=== PATIENT | male | born 1965 | race Caucasian/White ===

== ENCOUNTER 2019-12-25 17:03 | Emergency (ER) | payer SELFPAY ==
[~2019-12-25] VITALS: Ht 190.5 cm; Wt 127.0 kg
[2019-12-25 19:23] VITALS: BP 116/74
[2019-12-25] MEDS ORDERED: LIDOCAINE 1% HCL (LOCAL ANESTH.) INJ 20ML MDV IJ ONE (19:45)
[2019-12-25] MEDS ORDERED: TETANUS-DIPTH-ACEL PERTUSSIS 0.5ML SYRG IM ONE (19:45)
== END 2019-12-25 21:32 | disposition home or self-care (01) ==
LOC: ER 17:03
DX: S61.212A Laceration without foreign body of right middle finger without damage to nail, initial encounter (principal); I48.91 Unspecified atrial fibrillation; I10 Essential (primary) hypertension; F12.10 Cannabis abuse, uncomplicated; W22.8XXA Striking against or struck by other objects, initial encounter; Y93.89 Activity, other specified; Y92.89 Other specified places as the place of occurrence of the external cause; Y99.8 Other external cause status
CPT/HCPCS: 12001; 90471; 90715

== ENCOUNTER 2022-11-16 23:01 | Emergency (ER) | payer OTHER ==
[~2022-11-16] VITALS: Ht 190.5 cm; Wt 116.0 kg
[2022-11-16 23:57] LABS: Basophils # (auto) 0.1 10 ^3/uL (0-0.2); Basophils % (auto) 0.5 % (0.0-2.0); Eosinophils # (auto) 0.6 10 ^3/uL (0-0.8); Eosinophils % (auto) 4.1 % (0.0-7.0); Hematocrit 44.6 % (41.0-53.0); Hemoglobin 15.4 g/dL (13.5-17.5); Lymphocytes # (auto) 2.7 10 ^3/uL (0.4-5.4); Lymphocytes % (auto) 17.7 % (10.0-50.0); Mean Corpuscular Hemoglobin 32.3 pg (28.0-32.0); Mean Corpuscular Hgb Conc. 34.5 g/dL (32.0-36.0); Mean Corpuscular Volume 93.8 fL (80.0-100.0); Monocytes # (auto) 1.6 10 ^3/uL (0-1.3); Monocytes % (auto) 10.2 % (0.0-12.0); Neutrophils # (auto) 10.4 10 ^3/uL (1.6-8.6); Neutrophils % (auto) 67.5 % (37.0-80.0); Nucleated Red Blood Cells % 0.1 %; Red Blood Cells 4.75 10^6/uL (4.5-5.90); Red Cell Distribution Width 14.1 % (11.8-14.3); White Blood Cell 15.4 10^3/uL (4.4-10.8)
[2022-11-17 00:06] LABS: Albumin 4.3 g/dL (3.4-5.0); Calcium 9.2 mg/dL (8.5-10.1); Potassium 4.4 mmol/L (3.5-5.1)
[2022-11-17 00:10] LABS: BUN/Creatinine Ratio 21.5; Bilirubin, Total 0.4 mg/dL (0.2-1.0); Total Protein 7.2 g/dL (6.4-8.2)
[2022-11-17] MEDS ORDERED: SODIUM CHLORIDE 0.9% 1,000 ML IV ONE (00:45)
[2022-11-17] MEDS ORDERED: fentaNYL CITRATE 100 MCG/2 ML VL IV ONE ×2 (00:45→03:00)
[2022-11-17] MEDS ORDERED: ONDANSETRON HCL 4 MG/2 ML VIAL IV ONE (01:00)
[2022-11-17] MEDS ORDERED: TAMSULOSIN HYDROCHLORIDE 0.4 MG CAP PO ONE (02:45)
[2022-11-17] MEDS ORDERED: cefTRIAXone 1GM/50ML D5W 50 ML IV ONE (03:15)
[2022-11-17 04:24] LABS: Urine Bacteria NONE SEEN /hpf (None Seen); Urine Blood 2+ /uL (Negative); Urine Mucus FEW (None Seen); Urine Specific Gravity 1.028 (1.001-1.035); Urine WBC 1 /hpf (0 - 3)
[2022-11-17 07:05] VITALS: BP 155/66
== END 2022-11-17 07:26 | disposition short-term general hospital (02) ==
LOC: ER 23:01
DX: N20.0 Calculus of kidney (principal); I48.91 Unspecified atrial fibrillation; I10 Essential (primary) hypertension; F12.90 Cannabis use, unspecified, uncomplicated; Z98.890 Other specified postprocedural states; Z20.822 Contact with and (suspected) exposure to COVID-19
CPT/HCPCS: 36415; 74176; 76870; 80053; 81001; 84484; 85025; 87426; 93005; 96361; 96365; 96375; 96376; 99285; J0696; J2405; J3010; J7030

== ENCOUNTER 2024-03-05 08:23 | Inpatient (IN) | payer OTHER ==
[2024-03-05] VITALS (7 sets, daily range): BP systolic 142–162; BP diastolic 73–92; PULSE 61–72; RESP 18–20; TEMP 98–98.2; O2SAT 91–98
[~2024-03-05] VITALS: Ht 190.5 cm; Wt 124.5 kg
[2024-03-05 08:42] LABS: Basophils # (auto) 0.1 10 ^3/uL (0-0.2); Basophils % (auto) 0.6 % (0.0-2.0); Eosinophils # (auto) 0.3 10 ^3/uL (0-0.8); Eosinophils % (auto) 2.5 % (0.0-7.0); Hemoglobin 16.8 g/dL (13.5-17.5); Lymphocytes # (auto) 1.1 10 ^3/uL (0.4-5.4); Lymphocytes % (auto) 9.7 % (10.0-50.0); Mean Corpuscular Hemoglobin 32.2 pg (28.0-32.0); Mean Corpuscular Hgb Conc. 34.4 g/dL (32.0-36.0); Mean Corpuscular Volume 93.6 fL (80.0-100.0); Monocytes # (auto) 1.8 10 ^3/uL (0-1.3); Monocytes % (auto) 16.1 % (0.0-12.0); Neutrophils # (auto) 7.8 10 ^3/uL (1.6-8.6); Neutrophils % (auto) 71.1 % (37.0-80.0); Nucleated Red Blood Cells % 0.1 %; Red Blood Cells 5.24 10^6/uL (4.5-5.90); White Blood Cell 10.9 10^3/uL (4.4-10.8)
[2024-03-05 08:50] LABS: Alanine Aminotransferase 20 U/L (7-40); Albumin 4.7 g/dL (3.2-4.8); Alkaline Phosphatase 75 U/L (46-116); Anion Gap 9 (5-15); Aspartate Aminotransferase 32 U/L (13-40); BUN/Creatinine Ratio 8.6 (10.0-20.0); Bilirubin, Total 0.5 mg/dL (0.2-1.0); Blood Urea Nitrogen 8 mg/dL (9-23); Calcium 9.4 mg/dL (8.5-10.1); Carbon Dioxide 23 mmol/L (20-30); Chloride 102 mmol/L (98-107); Glucose 144 mg/dL (74-106); Sodium 134 mmol/L (136-145); Total Protein 7.6 g/dL (5.7-8.2)
[2024-03-05] MEDS: ASPirin 325 MG TAB PO ONE (09:10)
[2024-03-05] MEDS: NITROGLYCERIN 0.4 MG SL TAB SL ONE ×2 (09:10→12:30)
[2024-03-05] MEDS: AZITHROMYCIN 500MG/ 250ML 250 ML IV ONE (12:36)
[2024-03-05] MEDS: cefTRIAXone 1GM/50ML D5W 50 ML IV ONE (12:36)
[2024-03-05] MEDS ORDERED: ACETAMINOPHEN 325 MG TAB PO PRN (15:15)
[2024-03-05] MEDS ORDERED: DOCUSATE SOD 100 MG CAP PO PRN (15:15)
[2024-03-05] MEDS ORDERED: ONDANSETRON HCL 4 MG/2 ML VIAL IV PRN (15:15)
[2024-03-05] MEDS ORDERED: MORPHINE SULFATE INJ 2 MG/ml SYRG IV PRN ×2 (15:15)
[2024-03-05] MEDS ORDERED: NITROGLYCERIN 0.4 MG SL TAB SL PRN (15:15)
[2024-03-05 16:19] LABS: Magnesium 2.2 mg/dL (1.6-2.6)
[2024-03-05 16:25] LABS: INR 1.13 (0.9-1.15); Partial Thromboplastin Time 29.4 SEC (24.5-34.5); Prothrombin Time 11.9 sec (9.3-11.8)
[2024-03-05 16:26] LABS: COVID19 ANTIGEN SOFIA FIA NEGATIVE (NEGATIVE)
[2024-03-05 16:41] LABS: Rapid Influenza A Negative (Negative); Rapid Influenza B Negative (Negative)
[2024-03-05 17:02] LABS: Phosphorus 3.6 mg/dL (2.4-5.1)
[2024-03-05 18:52] LABS: Urine Bacteria None Seen /hpf (None Seen)
[2024-03-05 19:08] LABS: Urine Blood Negative /uL (Negative); Urine Clarity Clear (Clear); Urine Color Yellow (Yellow); Urine Hyaline Cast FEW /lpf (0 - 2); Urine Mucus FEW (None Seen); Urine Protein, UAD TRACE (Negative); Urine Specific Gravity 1.018 (1.001-1.035); Urine Urobilinogen Normal (Negative); Urine WBC 4 /hpf (0 - 3)
[2024-03-05 19:22] LABS: Amphetamine Screen, Urine Neg (NEGATIVE); Barbiturate Scree,Urine Neg (NEGATIVE); Benzodiazephine Screen, Urine Neg (NEGATIVE); Cannabinoid Screen, Urine Pos (NEGATIVE); Cocaine Screen, Urine Neg (NEGATIVE); Opiate Scree,Urine Neg (NEGATIVE); Phencyclidine Screen, Urine Neg (NEGATIVE)
[2024-03-05] MEDS: IPRATROPIUM BROM 0.5 MG/2.5ML INH SOL NEB SCH (19:35)
[2024-03-05] MEDS ORDERED: BISO5TAB44 PO (20:59)
[2024-03-05] MEDS ORDERED: ASPI1TAB20 PO (21:01)
[2024-03-05] MEDS: ATORVASTATIN 20 MG TAB PO SCH (21:07)
[2024-03-05] MEDS ORDERED: ERGOCALCIFEROL 50,000 UNIT(1.25MG) CAP PO SCH (21:15)
[2024-03-05] MEDS: BUDESONIDE (INHALATION) 0.5 MG/2 ML NEB NEB SCH (21:52)
[2024-03-06] VITALS (16 sets, daily range): BP systolic 128–148; BP diastolic 76–84; PULSE 61–83; RESP 16–21; TEMP 97.3–98.2; O2SAT 90–97
[2024-03-06 05:39] LABS: Hematocrit 49.7 % (41.0-53.0); Mean Corpuscular Hemoglobin 32.4 pg (28.0-32.0); Mean Corpuscular Hgb Conc. 34.3 g/dL (32.0-36.0); Mean Corpuscular Volume 94.4 fL (80.0-100.0); Red Blood Cells 5.26 10^6/uL (4.5-5.90); White Blood Cell 6.9 10^3/uL (4.4-10.8)
[2024-03-06 05:42] LABS: Basophils % (manual) 0 (0.0-2.0); Blast Cells 0; Promyelocytes % 0; Reactive Lymphocytes 0
[2024-03-06 05:53] LABS: Alanine Aminotransferase 30 U/L (7-40); Albumin 4.3 g/dL (3.2-4.8); Alkaline Phosphatase 70 U/L (46-116); Anion Gap 9 (5-15); Aspartate Aminotransferase 33 U/L (13-40); BUN/Creatinine Ratio 11.8 (10.0-20.0); Bilirubin, Total 0.5 mg/dL (0.2-1.0); Blood Urea Nitrogen 9 mg/dL (9-23); Calcium 9.2 mg/dL (8.7-10.4); Carbon Dioxide 23 mmol/L (20-30); Chloride 101 mmol/L (98-107); Glucose 94 mg/dL (74-106); Magnesium 2.2 mg/dL (1.6-2.6); Sodium 133 mmol/L (136-145); Total Protein 7.2 g/dL (5.7-8.2)
[2024-03-06 06:10] LABS: Phosphorus 3.6 mg/dL (2.4-5.1)
[2024-03-06 06:42] LABS: Band Neutrophils % (manual) 15; Eosinophils % (manual) 5 (0-7); Lymphocytes % (manual) 8 (10.0-50.0); Metamyelocytes % 1; Monocytes % (manual) 19 (0-12); Myelocytes % 10; Platelet Estimate Adequate; Smudge Cells 2 /100 WBC
[2024-03-06] MEDS: cefTRIAXone 1GM/50ML D5W 50 ML IV SCH (08:24)
[2024-03-06] MEDS: AZITHROMYCIN 500MG/ 250ML 250 ML IV SCH (10:19)
[2024-03-06] MEDS: ASPirin 81 mg TAB PO SCH (10:19)
[2024-03-06] MEDS ORDERED: ADENOSINE 105 MG in GIVE UN-DILUTED 0 ML IV ONE (12:45)
[2024-03-06] MEDS: ADENOSINE 105 MG in GIVE UN-DILUTED 0 ML IV ONE (13:07)
[2024-03-06] MEDS: CYANOCOBALAMIN 500 MCG TAB PO ONE (21:35)
[2024-03-07] VITALS (20 sets, daily range): BP systolic 124–153; BP diastolic 62–92; PULSE 62–83; RESP 16–20; TEMP 97.4–98.8; O2SAT 92–98
[2024-03-07 06:17] LABS: Basophils # (auto) 0 10 ^3/uL (0-0.2); Basophils % (auto) 0.4 % (0.0-2.0); Eosinophils # (auto) 0.4 10 ^3/uL (0-0.8); Eosinophils % (auto) 5.2 % (0.0-7.0); Hematocrit 47.9 % (41.0-53.0); Hemoglobin 16.8 g/dL (13.5-17.5); Lymphocytes % (auto) 25.1 % (10.0-50.0); Mean Corpuscular Hemoglobin 32.6 pg (28.0-32.0); Mean Corpuscular Volume 93.2 fL (80.0-100.0); Monocytes # (auto) 1.2 10 ^3/uL (0-1.3); Monocytes % (auto) 15.1 % (0.0-12.0); Neutrophils # (auto) 4.2 10 ^3/uL (1.6-8.6); Neutrophils % (auto) 54.2 % (37.0-80.0); Nucleated Red Blood Cells % 0.2 %; Red Blood Cells 5.14 10^6/uL (4.5-5.90); Red Cell Distribution Width 13.8 % (11.8-14.3); White Blood Cell 7.9 10^3/uL (4.4-10.8)
[2024-03-07 06:45] LABS: Alanine Aminotransferase 28 U/L (7-40); Albumin 4.1 g/dL (3.2-4.8); Alkaline Phosphatase 69 U/L (46-116); Anion Gap 6 (5-15); Aspartate Aminotransferase 32 U/L (13-40); BUN/Creatinine Ratio 12.8 (10.0-20.0); Bilirubin, Total 0.4 mg/dL (0.2-1.0); Blood Urea Nitrogen 11 mg/dL (9-23); Calcium 9.3 mg/dL (8.5-10.1); Carbon Dioxide 26 mmol/L (20-30); Chloride 103 mmol/L (98-107); Glucose 90 mg/dL (74-106); Potassium 4.1 mmol/L (3.5-5.1); Sodium 135 mmol/L (136-145); Total Protein 6.9 g/dL (5.7-8.2)
[2024-03-07] MEDS: LIDOCAINE 2%HCL (LOCAL ANESTH.) INJ 20ML MDV ONE (09:09)
[2024-03-07] MEDS: IODIXANOL 320MG/ML 100ML BTL IV ONE (09:10)
[2024-03-07] MEDS: fentaNYL CITRATE 100 MCG/2 ML VL ONE (09:14)
[2024-03-07] MEDS: ANGIOMAX 250 MG VIAL IV ONE (09:14)
[2024-03-07] MEDS: VERAPAMIL 2.5MG/ML INJ 2ML VIAL IV ONE (09:14)
[2024-03-07] MEDS: HEPARIN SODIUM (PORCINE) 5000 UNITS/ML 1ML VIAL ONE (09:14)
[2024-03-07] MEDS: MIDAZOLAM HCL 2MG/2ML 2ml VIAL (1mg/ml) ONE (09:14)
[2024-03-07] MEDS: NITROGLYCERIN 50MG/250ML 250 ML IV ONE (09:15)
[2024-03-07] MEDS: SODIUM CHL 0.9% 0 ML ONE (09:15)
[2024-03-07] MEDS ORDERED: HEPARIN SODIUM (PORCINE) 5000 UNITS/ML 1ML VIAL ONE (09:57)
[2024-03-07] MEDS: CYANOCOBALAMIN 500 MCG TAB PO SCH (10:00)
== END 2024-03-07 22:13 | disposition short-term general hospital (02) | DRG 871 ==
LOC: ER 08:23 → TELE 15:12 → TELE-EAST 20:05
PROVIDERS: ADMIT Internal Medicine; ATTEND Internal Medicine
PROC: 4A023N7 Measurement of Cardiac Sampling and Pressure, Left Heart, Percutaneous Approach (ICD-10-PCS; principal; 2024-03-07)
PROC: B211YZZ Fluoroscopy of Multiple Coronary Arteries using Other Contrast (ICD-10-PCS; 2024-03-07)
DX: A41.9 Sepsis, unspecified organism (principal); J12.9 Viral pneumonia, unspecified; J96.01 Acute respiratory failure with hypoxia; I10 Essential (primary) hypertension; I48.91 Unspecified atrial fibrillation; Z20.822 Contact with and (suspected) exposure to COVID-19; I49.3 Ventricular premature depolarization; J98.4 Other disorders of lung; I20.9 Angina pectoris, unspecified
CPT/HCPCS: 36415; 71046; 78452; 80053; 80061; 80307; 81001; 82306; 82607; 83036; 83605; 83690; 83735; 84100; 84443; 84484; 85007; 85025; 85027; 85610; 85730; 87040; 87426; 87804; 93005; 93017; 93306; 94640; 96365; 96368; 99152; 99291; G0378; J0153; J2250; Q9967